=== PATIENT | male | born 1940 | race Caucasian/White ===

== ENCOUNTER → 2017-03-01 | Day surgery (SDC) | payer OTHER, MEDICARE ==
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
[~2017-03-01] VITALS: Ht 170.2 cm; Wt 81.6 kg
[~2017-03-01] MED LIST: GLIPIZIDE5 M2 PO; HYDROCHLOROTH12.5 M3 PO; LEVSIN0.125 M1 PO; LOSARTAN POTASS50 M1 PO
--- NOTE | 2017-03-01 09:49 | Operative Report ---
Operative/Inv Procedure Report Surgery Date: 03/01/17 Name of Procedure: 1. Laparoscopic left inguinal hernia repair 2. Excision left chest wall lipoma, 2 cm Pre-Operative Diagnosis: Left inguinal hernia Lipoma Post-Operative Diagnosis: Same Estimated Blood Loss: scant Surgeon/Sort Line Worker: DIAZ SANTOS,SIS Kim/Jennifer FRANCOIS Anesthesia: general endotracheal tube Implants: Parietex mesh Operative/Procedure Note Note: After consent patient is brought to the operating room laid supine. General anesthesia was obtained and the abdomen was prepped and draped. Skin was anesthetized with local anesthesia and a transverse infraumbilical incision made sharply. We identified the rectus fascia and incised transversely. Stay sutures were placed. Rectus muscle was retracted laterally and a dissecting balloon placed posterior to it. It was inflated under direct vision the camera and replaced with a blunt Deutsch port. Gas was instilled. 2, 5 mm ports were placed in the infraumbilical midline after local anesthesia was instilled and under direct vision and camera. Began our dissection at the pubis and delineated the symphysis. Karl's ligament was identified and cleared. There was a large direct hernia which was dissected free and reflected inferiorly. Then dissected laterally and developed the iliopubic tract. The cord structures were circumferentially dissected. Once the dissection was completed a left- sided piece of Parietex mesh was placed in the cavity. It was placed around the cord structures re-create the internal ring and cover the femoral and direct spaces as well. It was tacked medially along Karl's ligament and superiorly medial to the epigastric vessels. Gas was allowed to escape on maintaining proper orientation of the mesh. The fascia was closed with 0 Vicryl suture. Attention was then turned to the left chest. The skin overlying the mass was after local anesthesia and a transverse incision made sharply. We dissected down to the lipoma with cautery and excised it sharply. This passed off the field. Hemostasis achieved with cautery. All incisions closed with 4-0 Vicryl. CC: ESTELLA SANTOS,DANNIELLE Marlow
== END ==
LOC: STS 03:22
DX: K40.90 Unilateral inguinal hernia, without obstruction or gangrene, not specified as recurrent (principal); D17.1 Benign lipomatous neoplasm of skin and subcutaneous tissue of trunk; I10 Essential (primary) hypertension
CPT/HCPCS: 88304; C1781; J0690; J2250

== ENCOUNTER 2017-03-17 16:36 | Emergency (ER) | payer OTHER, MEDICARE ==
[~2017-03-17] VITALS: Ht 167.6 cm; Wt 78.9 kg
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
[2017-03-17 17:39] LABS: ABSOLUTE BASOPHIL COUNT 0 /CUMM (0.0-0.2); ABSOLUTE EOSINOPHIL COUNT 0.2 /CUMM (0.0-0.7); ABSOLUTE GRANULOCYTE CT 6.5 /CUMM (1.4-6.5); ABSOLUTE LYMPH COUNT 1.4 /CUMM (1.2-3.4); ABSOLUTE MONOCYTE COUNT 0.5 /CUMM (0.10-0.60); BASOPHIL % 0.4 % (0.0-2.0); GRANULOCYTE % 75.5 % (42.2-75.2); HEMATOCRIT 46.1 % (42-52); MEAN CORPUSCULAR HGB 28.1 PG (27.0-31.0); MEAN CORPUSCULAR HGB CONC 33.3 G/DL (33.0-37.0); MEAN CORPUSCULAR VOLUME 84.4 FL (80.0-94.0); MEAN PLATELET VOLUME 6.8 FL (7.4-10.4); PLATELET COUNT 231 /CUMM (130-400); RBC DISTRIBUTION WIDTH 14.4 % (11.5-14.5); RED BLOOD CELL CT 5.46 /CUMM (4.70-6.10); WHITE BLOOD CELL COUNT 8.7 /CUMM (4.8-10.8)
--- NOTE | 2017-03-17 18:32 | CT SCAN REPORT ---
EXAMINATION: CT HEAD WITHOUT CONTRAST CLINICAL INFORMATION: Syncope. Assess for CVA. COMPARISON: None. TECHNIQUE: Contiguous axial imaging was performed from the skull base to vertex without intravenous administration of contrast. DLP: 696.22 mGy-cm FINDINGS: There is no evidence of acute intracranial hemorrhage or territorial infarction. No abnormal mass effect or midline shift is seen. Kim to white matter differentiation is well preserved. No extra-axial fluid collections are identified. There is mild commensurate prominence of the ventricles and sulci consistent with mild diffuse volume loss. There is also volume loss in the cerebellum. There are mild areas of low attenuation in the periventricular and subcortical white matter, consistent with chronic microvascular changes. There have been bilateral lens extractions. There is a linear lucency along the right occipital bone to the right of midline (images 33 through 56/288) which may be consistent with a nondisplaced fracture versus a suture. No adjacent intracranial hemorrhage is demonstrated. There is minimal associated overlying soft tissue swelling. The mastoid air cells and visualized portions of the paranasal sinuses are well aerated. The nasal septum is sharply deviated to the right in the mid nasal cavity with a bony spur on the right, and it is deviated to the left anteriorly. IMPRESSION: 1. There are no acute bleeds or territorial infarcts. 2. There are changes consistent with chronic microvascular ischemic disease and diffuse volume loss. 3. Linear lucency in the right occipital bone may be consistent with a nondisplaced fracture; there is a minimal amount of associated soft tissue fullness. Correlate clinically. No adjacent intracranial hemorrhage is demonstrated.
[2017-03-17 19:37] VITALS: BP 140/72
--- NOTE | 2017-03-17 19:50 | RADIOLOGY REPORT ---
EXAMINATION: XR PORTABLE CHEST CLINICAL INFORMATION: Syncope. COMPARISON: None. TECHNIQUE: Portable frontal view of the chest was obtained. FINDINGS: The lungs are hypoinflated, without focal airspace consolidation. No pleural effusions or pneumothoraces are identified. Cardiomediastinal contours are within normal limits. Soft tissues are unremarkable. No acute osseous abnormality is identified. IMPRESSION: No acute pulmonary process.
== END 2017-03-17 20:22 | disposition left against medical advice (07) ==
LOC: ERH 16:36
PROVIDERS: Emergency Medicine
DX: R55 Syncope and collapse (principal); E11.9 Type 2 diabetes mellitus without complications
CPT/HCPCS: 93005; 93010